=== PATIENT | female | born 1975 | race Caucasian/White ===

== ENCOUNTER 2020-08-20 14:47 | Outpatient (REF) | payer OTHER, SELFPAY ==
[2020-08-23 04:27] LABS: HPV mRNA E6/E7 rflx Not Detected (Not Detected)
== END 2020-08-20 14:48 | disposition home or self-care (01) ==
LOC: HO.LAB 14:47
PROVIDERS: Visit Provider Obstetrics & Gynecology
DX: Z01.419 Encounter for gynecological examination (general) (routine) without abnormal findings (principal); Z11.51 Encounter for screening for human papillomavirus (HPV)
CPT/HCPCS: 87624; 88142

== ENCOUNTER 2020-10-19 19:59 | Emergency (ER) | payer OTHER, SELFPAY ==
--- NOTE | ~2020-10-19 | CT_ITS ---
EXAMINATION: CT HEAD WITHOUT CONTRAST CLINICAL INFORMATION: Altered mental status. COMPARISON: None. TECHNIQUE: Multidetector CT examination of the head is performed without contrast. This CT examination was performed using dose optimization techniques as appropriate, variously including the following: *Automated exposure control *Adjustment of mA and/or kV according to patient size (this includes techniques or standardized protocols for targeted exams where dose is matched to indication/reason for exam; i.e. extremities or head) *Use of iterative reconstruction technique DLP: 685 mGy-cm FINDINGS: There is no evidence of a recent intracranial hemorrhage or extra-axial collection. The midline structures are nondisplaced. The ventricles, cisterns, and sulci are within normal limits. There is no evidence of an intra-axial mass. There are no suspicious focal areas of abnormal brain attenuation. The galeas-white interface is within normal limits. There is no evidence of acute territorial infarct. Thickening in the region of the turbinates on the left. CT/CT head/brain wo con IMPRESSION: 1. There is no evidence of a recent intracranial hemorrhage. 2. No acute infarct. 3. No etiology for altered mental status demonstrated.
[2020-10-19 20:01] VITALS: BP 184/96; PULSE 120; RESP 38; O2SAT 99; BMI 24.0
[2020-10-19 20:06] VITALS: TEMP 37.1
[2020-10-19 20:11] LABS: Glucose, Whole Blood 135 mg/dL (60-115)
--- NOTE | 2020-10-19 20:18 | PC.NURSE ---
SZ pads applied to bed. Pt continuously thrashing in beds, at times legs over side rails. This RN discussing with manager roofing concern over fall risk. Sitter at bedside. Awaiting primary MD stephenson.
--- NOTE | 2020-10-19 20:22 | PC.NURSE ---
Unable to obtain EKG/labs at this time due to mental status.
--- NOTE | 2020-10-19 20:58 | ED.ALCOHOL ---
HPI - Alcohol General Chief Complaint: ETOH/Substance Use Stated Complaint: ams Time Seen by Provider: 10/19/20 20:58 Source: patient and EMS Mode of arrival: EMS Limitations: altered mental status History of Present Illness HPI narrative: 45 yo female with hx of HTN, HLD, found unresponsive in car with drugs and drug paraphernalia given bystander narcan - agitated with EMS given haldol and ativan, still agitated and uncooperative in the ED on arrival thrashing around, glucose 67 as well - given glucagon by EMS. EMS suspected polysubstance issue given scene of car MD complaint: alcohol intoxication Last drink: Unknown Chronic alcohol use: No Previous visits for alcohol intoxication: No Recent trauma: No Associated symptoms: denies other symptoms Treatments prior to arrival: other (narcan, glucagon, haldol/ativan) Related Data Home Medications Medication Instructions Recorded Confirmed amlodipine 5 mg tablet 5 mg PO DAILY 08/20/20 08/20/20 atorvastatin 80 mg tablet 80 mg PO DAILY 08/20/20 08/20/20 carvedilol 6.25 mg tablet 6.25 mg PO BID 08/20/20 08/20/20 lisinopril 5 mg tablet 5 mg PO DAILY 08/20/20 08/20/20 norethindrone (contraceptive) 0.35 0.35 mg PO DAILY 08/20/20 08/20/20 mg tablet ticagrelor 90 mg tablet 90 mg PO BID 08/20/20 08/20/20 Allergies Allergy/AdvReac Type Severity Reaction Status Date / Time No Known Allergies Allergy Verified 08/20/20 14:51 Review of Systems Review of Systems: ROS unable to be obtained due to altered mental status [facility] Past Medical History Attestation statement: The following information was validated with the patient. Medical History Heart attack HTN (hypertension) Lupus Surgical History Hx of hand surgery Family History Family History (Updated 08/20/20 @ 15:04 by MEAGAN Linares) Father Leukemia Maternal Aunt Lymphoma Social History Social History Alcohol intake: never Patient Tobacco Use Status: Current everyday Tobacco user Cigarettes Per Day: 5 Advance Directives: No Advance Directives Information Provided: No Patient : No (Unknown) Gender identity: female Physical Exam Vital Signs: Vital Signs: Last Vital Signs Temp 96.8 F 10/19/20 22:19 Pulse 81 10/20/20 01:12 Resp 16 10/20/20 01:12 BP 135/90 H 10/20/20 01:12 Pulse Ox 98 10/20/20 01:12 Body Mass Index 24.0 Appearance: Thrashing around, unable to fully wake up. Unkempt, Moderate acute distress. Eyes: Pupils equal, round and reactive to light. ENT: Pharynx normal. Neck: Normal inspection. Neck supple. CVS: Normal heart rate and rhythm. Pulses normal. Respiratory: No respiratory distress. Breath sounds normal. Abdomen: Soft and no signs of trauma Skin: Skin warm and dry. Normal skin color. track vasquez noted on L forearm no signs of cellulitis Extremities: No lower extremity edema. Neuro: Moves all extremities, pulls away from stimuli and voice. No motor deficit. No sensory deficit. Course Course Course Narrative: no acute findings on CT scan, VS stable end tidal 44, will repeat blood sugar blood sugar stable, patient much more alert and talking, calm states she doesn't remember the events patient wakes up more easily with verbal stimuli patient signed out pending metabolization of medications she received en route MDM - Alcohol MDM Narrative Medical decision making narrative: 45 yo female with hx of HTN, HLD, CAD here with AMS and found in a car with drugs - chemically restrained by EMS, still agitated here, IM ativan ordered so we can obtain EKG, labs and CT head - at this time undifferentiated metabolic/toxic encephalopathy Lab Data Result diagrams: 10/19/20 22:12 10/19/20 22:12 Labs: Lab Results 10/19/20 10/19/20 10/19/20 Range/Units 20:07 22:11 22:11 WBC (4.8-10.8) X10*3/uL RBC (4.20-5.50) X10*6/uL Hgb (12.0-16.0) g/dl Hct (37-47) % MCV (80-98) fL MCH (27.0-33.0) pg MCHC (31.0-35.0) g/dl RDW (11.0-16.0) % Plt Count (160-400) X10*3/uL MPV (9.4-12.3) fL Immature Gran % (Auto) (0.0-0.4) % Neut % (Auto) (45-73) % Lymph % (Auto) (20-40) % Stearns % (Auto) (2-11) % Eos % (Auto) (0-4) % Baso % (Auto) (0-2) % Lymph # (Auto) (1.2-4.9) X10*3/uL [place] # (Auto) (0.1-1.2) X10*3/uL Eos # (Auto) (0.0-0.4) X10*3/uL Baso # (Auto) (0.0-0.2) X10*3/uL Abs Immat Gran (auto) (0.00-0.03) X10*3/uL Absolute Neuts (auto) (2.0-8.3) X10*3/uL Absolute Nucleated RBC (0.0-0.012) X10*3/uL Nucleated RBC % (auto) (0.0-0.2) /100WBC PT (9.9-13.0) SEC INR (0.9-1.1) APTT (24.1-38.0) SEC Sodium (135-145) mmol/L Potassium (3.3-5.1) mmol/L Chloride (96-108) mmol/L Carbon Dioxide (22-29) mmol/L Anion Gap (12-20) BUN (9-16) mg/dL Creatinine (0.5-1.4) mg/dL Estim Creat Clear Calc Estimated GFR POC Glucose 135 H (60-115) mg/dL Random Glucose (60-115) mg/dL Calcium (8.4-10.2) mg/dL Magnesium (1.6-2.6) mg/dL Total Bilirubin (0.0-1.0) mg/dL Direct Bilirubin (0.0-0.5) mg/dL AST (5-31) U/L ALT (0-31) U/L Alkaline Phosphatase (39-117) U/L Ammonia 41 (13-55) umol/L Total Protein (6.5-8.0) g/dL Albumin (3.5-5.0) g/dL Salicylates (15-30) mg/dL Acetaminophen (<30) mcg/mL Ethyl Alcohol < 10 mg/dL Coronavirus (PCR) (Negative) Influenza Type A (PCR) (Negative) Influenza Type B (PCR) (Negative) RSV RNA Qual (PCR) (Negative) 10/19/20 10/19/20 10/19/20 Range/Units 22:12 22:12 22:12 WBC 14.6 H (4.8-10.8) X10*3/uL RBC 4.31 (4.20-5.50) X10*6/uL Hgb 11.5 L (12.0-16.0) g/dl Hct 35.8 L (37-47) % MCV 83.1 (80-98) fL MCH 26.7 L (27.0-33.0) pg MCHC 32.1 (31.0-35.0) g/dl RDW 14.6 (11.0-16.0) % Plt Count 239 (160-400) X10*3/uL MPV 11.2 (9.4-12.3) fL Immature Gran % (Auto) 0.5 H (0.0-0.4) % Neut % (Auto) 89.0 H (45-73) % Lymph % (Auto) 6.6 L (20-40) % [place] % (Auto) 3.2 (2-11) % Eos % (Auto) 0.4 (0-4) % Baso % (Auto) 0.3 (0-2) % Lymph # (Auto) 1.0 L (1.2-4.9) X10*3/uL [place] # (Auto) 0.5 (0.1-1.2) X10*3/uL Eos # (Auto) 0.1 (0.0-0.4) X10*3/uL Baso # (Auto) 0.1 (0.0-0.2) X10*3/uL Abs Immat Gran (auto) 0.08 H (0.00-0.03) X10*3/uL Absolute Neuts (auto) 13.0 H (2.0-8.3) X10*3/uL Absolute Nucleated RBC 0.000 (0.0-0.012) X10*3/uL Nucleated RBC % (auto) 0.0 (0.0-0.2) /100WBC PT 12.1 (9.9-13.0) SEC INR 1.1 (0.9-1.1) APTT 33.0 (24.1-38.0) SEC Sodium 143 (135-145) mmol/L Potassium 3.0 L (3.3-5.1) mmol/L Chloride 105 (96-108) mmol/L Carbon Dioxide 28 (22-29) mmol/L Anion Gap 13 (12-20) BUN 11 (9-16) mg/dL Creatinine 0.71 (0.5-1.4) mg/dL Estim Creat Clear Calc 94.6 Estimated GFR > 60 POC Glucose (60-115) mg/dL Random Glucose 83 (60-115) mg/dL Calcium 9.1 (8.4-10.2) mg/dL Magnesium 2.1 (1.6-2.6) mg/dL Total Bilirubin 0.3 (0.0-1.0) mg/dL Direct Bilirubin < 0.2 (0.0-0.5) mg/dL AST 17 (5-31) U/L ALT 13 (0-31) U/L Alkaline Phosphatase 78 (39-117) U/L Ammonia (13-55) umol/L Total Protein 7.0 (6.5-8.0) g/dL Albumin 4.5 (3.5-5.0) g/dL Salicylates (15-30) mg/dL Acetaminophen (<30) mcg/mL Ethyl Alcohol mg/dL Coronavirus (PCR) (Negative) Influenza Type A (PCR) (Negative) Influenza Type B (PCR) (Negative) RSV RNA Qual (PCR) (Negative) 10/19/20 10/19/20 10/20/20 Range/Units 22:12 22:17 00:48 WBC (4.8-10.8) X10*3/uL RBC (4.20-5.50) X10*6/uL Hgb (12.0-16.0) g/dl Hct (37-47) % MCV (80-98) fL MCH (27.0-33.0) pg MCHC (31.0-35.0) g/dl RDW (11.0-16.0) % Plt Count (160-400) X10*3/uL MPV (9.4-12.3) fL Immature Gran % (Auto) (0.0-0.4) % Neut % (Auto) (45-73) % Lymph % (Auto) (20-40) % Ste[place]s % (Auto) (2-11) % Eos % (Auto) (0-4) % Baso % (Auto) (0-2) % Lymph # (Auto) (1.2-4.9) X10*3/uL [place] # (Auto) (0.1-1.2) X10*3/uL Eos # (Auto) (0.0-0.4) X10*3/uL Baso # (Auto) (0.0-0.2) X10*3/uL Abs Immat Gran (auto) (0.00-0.03) X10*3/uL Absolute Neuts (auto) (2.0-8.3) X10*3/uL Absolute Nucleated RBC (0.0-0.012) X10*3/uL Nucleated RBC % (auto) (0.0-0.2) /100WBC PT (9.9-13.0) SEC INR (0.9-1.1) APTT (24.1-38.0) SEC Sodium (135-145) mmol/L Potassium (3.3-5.1) mmol/L Chloride (96-108) mmol/L Carbon Dioxide (22-29) mmol/L Anion Gap (12-20) BUN (9-16) mg/dL Creatinine (0.5-1.4) mg/dL Estim Creat Clear Calc Estimated GFR POC Glucose 94 (60-115) mg/dL Random Glucose (60-115) mg/dL Calcium (8.4-10.2) mg/dL Magnesium (1.6-2.6) mg/dL Total Bilirubin (0.0-1.0) mg/dL Direct Bilirubin (0.0-0.5) mg/dL AST (5-31) U/L ALT (0-31) U/L Alkaline Phosphatase (39-117) U/L Ammonia (13-55) umol/L Total Protein (6.5-8.0) g/dL Albumin (3.5-5.0) g/dL Salicylates < 5.0 L (15-30) mg/dL Acetaminophen < 1 (<30) mcg/mL Ethyl Alcohol mg/dL Coronavirus (PCR) NEGATIVE (Negative) Influenza Type A (PCR) NEGATIVE (Negative) Influenza Type B (PCR) NEGATIVE (Negative) RSV RNA Qual (PCR) NEGATIVE (Negative) ECG Data ECG #1: Attestation: I personally reviewed and interpreted this ECG as follows: ECG interpretation date: 10/19/20 ECG interpretation time: 21:19 Interpretation: Rate: 82 Rhythm: NSR Superior: normal Normal P waves. Normal NABEEL. Normal QRS complex. ST T wave : nonspecific, no NAYA qTC: normal prior studies: none available The study has been interpreted contemporaneously by me. . Discharge Plan Discharge Clinical Impression: Acute alteration in mental status, Substance abuse Instructions: Polysubstance Abuse (ED), Altered Mental Status (ED) Additional Instructions: return to ED for any worsening symptoms or concerns Prescriptions: No Action lisinopril 5 mg tablet 5 mg PO DAILY RF: 0 amlodipine 5 mg tablet 5 mg PO DAILY RF: 0 norethindrone (contraceptive) 0.35 mg tablet 0.35 mg PO DAILY RF: 0 atorvastatin 80 mg tablet 80 mg PO DAILY RF: 0 carvedilol 6.25 mg tablet 6.25 mg PO BID RF: 0 Brilinta 90 mg tablet 90 mg PO BID RF: 0
--- NOTE | 2020-10-19 21:04 | PC.NURSE ---
at bedside for primary eval.
--- NOTE | 2020-10-19 21:07 | ECG_ITS ---
Test Reason : OVERDOSE Blood Pressure : / mmHG Vent. Rate : 082 BPM Atrial Rate : 082 BPM P-R Int : 146 ms QRS Dur : 106 ms QT Int : 416 ms P-R-T Axes : 054 032 005 degrees QTc Int : 486 ms Normal sinus rhythm Possible Left atrial enlargement Possible Inferior infarct , age undetermined Abnormal ECG No previous ECGs available Referred By: Adrienne Hummel Electronically Signed By:SHERRILL REGALADO MD
[2020-10-19] MEDS: LORazepam 2 MG/ML VIAL IM (21:27)
[2020-10-19 22:19] VITALS: BP 117/76; PULSE 78; RESP 16; TEMP 36; O2SAT 92
[2020-10-19 22:46] LABS: MANUAL DIFF FLAG NO
[2020-10-19 22:47] LABS: Basophils Absolute Auto 0.1 X10*3/uL (0.0-0.2); Basophils Percent Auto 0.3 % (0-2); Eosinophils Absolute Auto 0.1 X10*3/uL (0.0-0.4); Eosinophils Percent Auto 0.4 % (0-4); Hematocrit 35.8 % (37-47); Hemoglobin 11.5 g/dl (12.0-16.0); Imm Gran Abs Auto 0.08 X10*3/uL (0.00-0.03); Imm Gran Pct Auto 0.5 % (0.0-0.4); Lymphocytes Percent Auto 6.6 % (20-40); Mean Corpuscular HGB Conc 32.1 g/dl (31.0-35.0); Mean Corpuscular Hemoglobin 26.7 pg (27.0-33.0); Mean Corpuscular Volume 83.1 fL (80-98); Mean Platelet Volume 11.2 fL (9.4-12.3); Monocytes Absolute Auto 0.5 X10*3/uL (0.1-1.2); Monocytes Percent Auto 3.2 % (2-11); Platelet Count 239 X10*3/uL (160-400); Red Blood Count 4.31 X10*6/uL (4.20-5.50); Red Cell Distribution Width 14.6 % (11.0-16.0); White Blood Count 14.6 X10*3/uL (4.8-10.8)
[2020-10-19 23:00] VITALS: BP 121/70; PULSE 81; RESP 19; O2SAT 92
[2020-10-19 23:06] LABS: INTERNATIONAL NORM RATIO 1.1 (0.9-1.1); Prothrombin Time 12.1 SEC (9.9-13.0)
[2020-10-19 23:13] LABS: Ammonia 41 umol/L (13-55)
[2020-10-19 23:15] LABS: Ethanol < 10 mg/dL
[2020-10-19 23:19] LABS: Alanine Aminotransferase 13 U/L (0-31); Albumin Level 4.5 g/dL (3.5-5.0); Alkaline Phosphatase 78 U/L (39-117); Anion Gap 13 (12-20); Aspartate Amino Transferase 17 U/L (5-31); Bilirubin Direct < 0.2 mg/dL (0.0-0.5); Bilirubin Total 0.3 mg/dL (0.0-1.0); Blood Urea Nitrogen 11 mg/dL (9-16); Calcium 9.1 mg/dL (8.4-10.2); Carbon Dioxide 28 mmol/L (22-29); Chloride 105 mmol/L (96-108); Creatinine Clr Calc Pharmacy 94.6; Estimated Glomerular Filt Rate > 60; Glucose Random 83 mg/dL (60-115); Magnesium 2.1 mg/dL (1.6-2.6); Sodium 143 mmol/L (135-145)
[2020-10-19 23:21] LABS: Salicylate < 5.0 mg/dL (15-30)
[2020-10-19 23:23] LABS: Acetaminophen LAB < 1 mcg/mL (<30)
[2020-10-19 23:25] LABS: Influenza A PCR NEGATIVE (Negative); Influenza B PCR NEGATIVE (Negative); Resp Syncy Virus RNA Qual PCR NEGATIVE (Negative); SARS COV2 PCR INHOUSE NEGATIVE (Negative)
[2020-10-20 00:52] LABS: Glucose, Whole Blood 94 mg/dL (60-115)
[2020-10-20 01:12] VITALS: BP 135/90; PULSE 81; RESP 16; O2SAT 98
--- NOTE | 2020-10-20 01:13 | PC.NURSE ---
Pt remains asleep in bed in NAD at this time. VSS.
[2020-10-20 05:59] VITALS: BP 169/98; PULSE 92; RESP 18; O2SAT 98
--- NOTE | 2020-10-20 05:59 | PC.NURSE ---
Pt resting comfortably in bed with daughter at bedside. Pt sleeping throughout the night without difficulty. VSS remain WNL. Continue to monitor.
--- NOTE | 2020-10-20 06:25 | PC.NURSE ---
Bladder scan: 740 ml. This RN at bedside for straight cath. Pt tolerating procedure well. UA obtained and sent.
[2020-10-20 06:50] LABS: Glucose Urine UA NEG (NEG); Leukocyte Esterase Urine NEG (NEG); Nitrite Urine NEG (NEG); PH 6.5 (5.0-8.0); Specific Gravity - Urine 1.025 (1.005-1.025); Urine Blood NEG (NEG); Urine Ketones 5 MG/DL (NEG); Urine Protein NEG (NEG-TRACE)
[2020-10-20 06:52] LABS: Appearance Urine CLEAR; Color Urine YELLOW
[2020-10-20 07:05] LABS: Amphetamine Screen Urine Not Detected (Not Detect); Barbiturates, Urine Not Detected (Not Detect); Benzodiazepines Screen Urine POSITIVE (Not Detect); Cannabinoid Screen Urine Not Detected (Not Detect); Cocaine Screen Urine POSITIVE (Not Detect); Opiate Screen Urine POSITIVE (Not Detect); Phencyclidine Screen Urine Not Detected (Not Detect)
[2020-10-20 08:52] LABS: UPreg QC Valid YES; Urine Pregnancy NEGATIVE (NEGATIVE)
[2020-10-20] MEDS: Potassium Chloride Packet 20 MEQ PACKET 40 MEQ PO (09:18)
[2020-10-20 09:20] VITALS: BP 162/97; PULSE 106; RESP 15; TEMP 36.6; O2SAT 98
--- NOTE | 2020-10-20 09:30 | PC.NURSE ---
Pt alert and oriented x3. BP high 160s, she denies pain, sob, nausea, or dizziness. Pt sleeping on and off, responds appropriately to questions. Pt requests her methadone which she states her current dose is 95mg. Medication given as documented. Her daughter is at bedside. This chief underwriter will follow-up on pt's request for her methadone.
--- NOTE | 2020-10-20 10:15 | PC.NURSE ---
This television script writer spoke with [place] nurse at [facility] regarding pt's current methadone dose verification. Release of information form signed by pt and faxed by this television script writer (fax # [phone]). Currently awaiting dose confirmation.
--- NOTE | 2020-10-20 13:03 | MHC.RECOVSUP ---
Recovery Support note: Patient is a 45 year old Lao speaking female who presented to [facility] ED via EMS on 10/19 due to altered mental status after using substances. Patient was chemically restrained by EMS due to agitation. Patient remained in the ED overnight and this junior underwriter met with patient to discuss her substance use and treatment options. Patient is currently resting in the hospital bed with her daughter by her side. Patient reports she was sober for 16 years and relapsed in November. Patient reports things have slowly gotten worse since then and that she bas been using increasingly over the past week. Patient is on methadone and reports daily heroin use. Patient reports a desire to go to detox to get stabilized on methadone and to get back into recovery. Patient reports she has her medications with her and would be able to bring them to treatment. Patient was catheterized while altered and chemically restrained however she is awake, alert and able to ambulate and urinate without assistance. This junior underwriter will refer patient to ATS facilities for treatment.
--- NOTE | 2020-10-20 17:46 | MHC.RECOVSUP ---
Recovery Support note: Patient information has been reviewed by [facility] and patient has been deemed appropriate for admission. Staff unable to complete intake at this time. Discussed case with patient and daughter. Plan for patient to go home with daughter and for them to contact [facility] later tonight to complete intake and schedule an admission. Patient and daughter are agreeable to this plan. Patient provided with a last dose letter to bring to [facility] if she does not get into treatment. Last dose letter has been faxed to [facility] in the event that she is accepted. Discussed case with patient's ED provider and RN.
--- NOTE | 2020-10-20 18:09 | PHA.MEDREC ---
Pharmacy Consult ? Medication Reconciliation Pharmacy has completed the medication reconciliation.
== END 2020-10-20 18:20 | disposition home or self-care (01) ==
PROVIDERS: Physician Assistant Medical; Emergency Provider Emergency Medicine
DX: R41.82 Altered mental status, unspecified (principal); F19.10 Other psychoactive substance abuse, uncomplicated; Z20.822 Contact with and (suspected) exposure to COVID-19; I10 Essential (primary) hypertension; F17.210 Nicotine dependence, cigarettes, uncomplicated
CPT/HCPCS: 0241U; 36415; 70450; 80048; 80076; 80143; 80179; 80307; 81003; 81025; 82077; 82140; 82947; 83735; 85025; 85610; 85730; 93005; 96372; 99285; J2060

== ENCOUNTER 2021-04-22 12:10 | Emergency (ER) | payer OTHER, SELFPAY ==
--- NOTE | ~2021-04-22 | US_ITS ---
EXAMINATION: US ABDOMEN LIMITED CLINICAL INFORMATION: Right upper quadrant pain and distention with tenderness. COMPARISON: None TECHNIQUE: Real-time imaging of the right upper quadrant abdominal viscera. FINDINGS: PANCREAS: The visualized portions of the pancreas are unremarkable but a large portion of the gland is obscured by bowel gas. LIVER: The liver is enlarged measuring at least 18 cm in greatest length and demonstrates increased echogenicity consistent with hepatic steatosis. No focal hepatic lesion. There is no intrahepatic biliary duct dilatation seen. GALLBLADDER: Multiple gallstones are present the largest measuring 2.1 x 1.1 x 1.5 cm. The gallbladder is physiologically distended with a slightly thickened wall at 7 mm. Sludge is also present in the gallbladder. The patient was not tender over the gallbladder when compressed with the ultrasound probe COMMON BILE DUCT: Normal in caliber measuring 0.6 cm in diameter. RIGHT KIDNEY: Normal. No hydronephrosis. No renal calculi or focal parenchymal lesions. The kidney measures 12.0 cm in maximum dimension. FREE FLUID: None. US/US abdomen limited IMPRESSION: 1. Enlarged fatty liver 2. Cholelithiasis with biliary sludge and slight thickening of gallbladder wall but negative Up's sign.
[2021-04-22 12:22] VITALS: BP 153/66; PULSE 66; RESP 18; TEMP 36.6; O2SAT 99; BMI 23.6
[2021-04-22 12:48] LABS: MANUAL DIFF FLAG NO
[2021-04-22 12:52] LABS: Appearance Urine HAZY; Basophils Absolute Auto 0.1 X10*3/uL (0.0-0.2); Basophils Percent Auto 0.6 % (0-2); Color Urine YELLOW; Eosinophils Absolute Auto 0.2 X10*3/uL (0.0-0.4); Eosinophils Percent Auto 1.8 % (0-4); Glucose Urine UA NEG (NEG); Hematocrit 35.3 % (37.0-47.0); Hemoglobin 11.5 g/dl (12.0-16.0); Imm Gran Abs Auto 0.03 X10*3/uL (0.00-0.03); Imm Gran Pct Auto 0.3 % (0.0-0.4); Leukocyte Esterase Urine NEG (NEG); Lymphocytes Absolute Auto 2.2 X10*3/uL (1.2-4.9); Lymphocytes Percent Auto 24.3 % (20-40); Mean Corpuscular HGB Conc 32.6 g/dl (31.0-35.0); Mean Corpuscular Hemoglobin 27.7 pg (27.0-33.0); Mean Corpuscular Volume 85.1 fL (80.0-98.0); Mean Platelet Volume 11.6 fL (9.4-12.3); Monocytes Absolute Auto 0.6 X10*3/uL (0.1-1.2); Monocytes Percent Auto 6.3 % (2-11); Neutrophils Percent Auto 66.7 % (45-73); Nitrite Urine NEG (NEG); Platelet Count 185 X10*3/uL (160-400); Red Blood Count 4.15 X10*6/uL (4.20-5.50); Red Cell Distribution Width 15.4 % (11.0-16.0); Specific Gravity - Urine >= 1.030 (1.005-1.025); Urine Blood NEG (NEG); Urine Ketones NEG (NEG); Urine Protein NEG (NEG-TRACE); White Blood Count 8.9 X10*3/uL (4.8-10.8)
[2021-04-22 12:54] LABS: UPreg QC Valid YES; Urine Pregnancy NEGATIVE (NEGATIVE)
[2021-04-22 13:13] LABS: COVID-19 Test Negative (Negative); IDNOW Serial# 9DD0AD1C
[2021-04-22 13:21] LABS: Alanine Aminotransferase 12 U/L (0-31); Albumin Level 4.3 g/dL (3.5-5.0); Alkaline Phosphatase 68 U/L (39-117); Anion Gap 10 (12-20); Aspartate Amino Transferase 14 U/L (5-31); Bilirubin Direct < 0.2 mg/dL (0.0-0.5); Bilirubin Total 0.4 mg/dL (0.0-1.0); Carbon Dioxide 30 mmol/L (22-29); Chloride 107 mmol/L (96-108); Estimated Glomerular Filt Rate > 60; Glucose Random 114 mg/dL (60-115); Lipase 20 U/L (8-78); Potassium 4.1 mmol/L (3.3-5.1); Sodium 143 mmol/L (135-145); Total Protein 6.9 g/dL (6.5-8.0)
[2021-04-22 15:48] LABS: Blood Urea Nitrogen 11 mg/dL (9-16); Calcium 9.8 mg/dL (8.4-10.2)
--- NOTE | 2021-04-22 16:44 | ED.ABDPAIN ---
HPI - Abdominal Pain General Chief Complaint: Abdominal Pain Stated Complaint: lower right abd pain Time Seen by Provider: 04/22/21 16:42 Source: patient Mode of arrival: ambulatory Limitations: no limitations History of Present Illness HPI narrative: 45-year-old female presenting to the ER with constant right sided abdominal pain that started 2 days ago and has been getting worse. She reports it started Tuesday night, cannot recall if it started after eating or if eating makes it worse or not. She reports the pain is mostly in her right upper and right middle abdomen. It does not radiate and it is sharp in nature, 6-7 out of 10. She is nauseated but has not vomited. Last BM was yesterday and was normal. She feels like she is bloated and distended. Denies ETOH use. Denies urinary symptoms. MD elicited complaint: abdominal pain Pertinent past history: none Onset (ago): day(s) (2) Pain Consistency: constant Location: RUQ Severity: moderate Pain scale (0-10): 6 Quality: stabbing and aching Radiation: none Migration to: no migration Exacerbating factors: nothing Relieving factors: nothing Associated symptoms: nausea Related Data Home Medications Medication Instructions Recorded Confirmed amlodipine 5 mg tablet 5 mg PO DAILY 08/20/20 10/20/20 atorvastatin 80 mg tablet 80 mg PO DAILY 08/20/20 10/20/20 carvedilol 6.25 mg tablet 6.25 mg PO BID 08/20/20 10/20/20 lisinopril 5 mg tablet 5 mg PO DAILY 08/20/20 10/20/20 norethindrone (contraceptive) 0.35 0.35 mg PO DAILY 08/20/20 10/20/20 mg tablet aspirin 81 mg tablet,delayed 81 mg PO DAILY 10/20/20 10/20/20 release Allergies Allergy/AdvReac Type Severity Reaction Status Date / Time No Known Allergies Allergy Verified 08/20/20 14:51 Review of Systems Review of Systems Constitutional: No Fever, No Chills ENT/Mouth: No sore throat, No Rhinorrhea, No Swallowing Difficulty Cardiovascular: No Chest Pain, No SOB Respiratory: No Cough, No Sputum, No Wheezing, No dyspnea Gastrointestinal: + Nausea, No Vomiting, No Diarrhea, + abdominal Pain, No Hematochezia, No Melena Genitourinary: No Dysuria, No Urinary Frequency, No Hematuria Musculoskeletal: No joint pain, No Myalgias Skin: No Skin Lesions, No rash Neuro: No Weakness,, No Dizziness, No Headache Psych: + Anxiety/Panic, No Depression Heme/Lymph: No Bruising, No Lymphadenopathy Physical Exam Vital Signs: Vital Signs: Last Vital Signs Temp 98.9 F 04/22/21 17:01 Pulse 77 04/22/21 17:01 Resp 16 04/22/21 17:01 BP 150/78 H 04/22/21 17:01 Pulse Ox 98 04/22/21 17:01 BMI result Body Mass Index 23.6 Appearance: Alert. Oriented X3. No acute distress. Eyes: Pupils equal, round and reactive to light. ENT: Pharynx normal. Neck: Normal inspection. Neck supple. CVS: Normal heart rate and rhythm. Pulses normal. Respiratory: No respiratory distress. Breath sounds normal. Abdomen: Softly distended with right upper and right middle abdominal tenderness, RUQ fullness with guarding. no rebound. normal +BS x4 Skin: Skin warm and dry. Normal skin color. Normal skin turgor. No rashes. Extremities: No lower extremity edema. Neuro: Oriented X 3. No motor deficit. No sensory deficit. Course Course Course Narrative: 45 y/o female presenting with constant right sided abdominal pain for the last 2 days. Worsened significantly the last 4 hours in the waiting room. Patient is slightly hypertensive on arrival with BP 153/66, normal HR and afebrile. Her exam is significant for RUQ tenderness and softly distended abd. Her labs are unremarkable without leukocytosis or LFT derrangement. Lipase normal. Will get Abd U/S for further evaluation. Nurse attempted PIV placement but line blew and patient refusing to try to replace. Will give PO meds and prilosec. Will sign out to night provider. MDM - Abdominal Pain Lab Data Result diagrams: 04/22/21 12:37 04/22/21 12:37 Labs: Lab Results 04/22/21 04/22/21 04/22/21 Range/Units 12:37 12:37 12:37 WBC 8.9 (4.8-10.8) X10*3/uL RBC 4.15 L (4.20-5.50) X10*6/uL Hgb 11.5 L (12.0-16.0) g/dl Hct 35.3 L (37.0-47.0) % MCV 85.1 (80.0-98.0) fL MCH 27.7 (27.0-33.0) pg MCHC 32.6 (31.0-35.0) g/dl RDW 15.4 (11.0-16.0) % Plt Count 185 (160-400) X10*3/uL MPV 11.6 (9.4-12.3) fL Immature Gran % (Auto) 0.3 (0.0-0.4) % Neut % (Auto) 66.7 (45-73) % Lymph % (Auto) 24.3 (20-40) % [place] % (Auto) 6.3 (2-11) % Eos % (Auto) 1.8 (0-4) % Baso % (Auto) 0.6 (0-2) % Lymph # (Auto) 2.2 (1.2-4.9) X10*3/uL [place] # (Auto) 0.6 (0.1-1.2) X10*3/uL Eos # (Auto) 0.2 (0.0-0.4) X10*3/uL Baso # (Auto) 0.1 (0.0-0.2) X10*3/uL Abs Immat Gran (auto) 0.03 (0.00-0.03) X10*3/uL Absolute Neuts (auto) 6.0 (2.0-8.3) x10*3/uL Absolute Nucleated RBC 0.000 (0.0-0.012) X10*3/uL Nucleated RBC % (auto) 0.0 (0.0-0.2) /100WBC Sodium 143 (135-145) mmol/L Potassium 4.1 D (3.3-5.1) mmol/L Chloride 107 (96-108) mmol/L Carbon Dioxide 30 H (22-29) mmol/L Anion Gap 10 L (12-20) BUN 11 (9-16) mg/dL Creatinine 0.95 (0.5-1.4) mg/dL Estim Creat Clear Calc 68.0 Estimated GFR > 60 Random Glucose 114 (60-115) mg/dL Calcium 9.8 D (8.4-10.2) mg/dL Total Bilirubin 0.4 (0.0-1.0) mg/dL Direct Bilirubin < 0.2 (0.0-0.5) mg/dL AST 14 (5-31) U/L ALT 12 (0-31) U/L Alkaline Phosphatase 68 (39-117) U/L Total Protein 6.9 (6.5-8.0) g/dL Albumin 4.3 (3.5-5.0) g/dL Lipase 20 (8-78) U/L Urine Color Urine Appearance Urine pH (5.0-8.0) Ur Specific [place] (1.005-1.025) Urine Protein (NEG-TRACE) MG/DL Urine Glucose (UA) (NEG) MG/DL Urine Ketones (NEG) MG/DL Urine Blood (NEG) Urine Nitrite (NEG) Ur Leukocyte Esterase (NEG) Urine Test (NEGATIVE) COVID-19 (GELACIO) Negative (Negative) COVID-19 Clin Com See Note 04/22/21 04/22/21 Range/Units 12:37 12:37 WBC (4.8-10.8) X10*3/uL RBC (4.20-5.50) X10*6/uL Hgb (12.0-16.0) g/dl Hct (37.0-47.0) % MCV (80.0-98.0) fL MCH (27.0-33.0) pg MCHC (31.0-35.0) g/dl RDW (11.0-16.0) % Plt Count (160-400) X10*3/uL MPV (9.4-12.3) fL Immature Gran % (Auto) (0.0-0.4) % Neut % (Auto) (45-73) % Lymph % (Auto) (20-40) % [place] % (Auto) (2-11) % Eos % (Auto) (0-4) % Baso % (Auto) (0-2) % Lymph # (Auto) (1.2-4.9) X10*3/uL [place] # (Auto) (0.1-1.2) X10*3/uL Eos # (Auto) (0.0-0.4) X10*3/uL Baso # (Auto) (0.0-0.2) X10*3/uL Abs Immat Gran (auto) (0.00-0.03) X10*3/uL Absolute Neuts (auto) (2.0-8.3) x10*3/uL Absolute Nucleated RBC (0.0-0.012) X10*3/uL Nucleated RBC % (auto) (0.0-0.2) /100WBC Sodium (135-145) mmol/L Potassium (3.3-5.1) mmol/L Chloride (96-108) mmol/L Carbon Dioxide (22-29) mmol/L Anion Gap (12-20) BUN (9-16) mg/dL Creatinine (0.5-1.4) mg/dL Estim Creat Clear Calc Estimated GFR Random Glucose (60-115) mg/dL Calcium (8.4-10.2) mg/dL Total Bilirubin (0.0-1.0) mg/dL Direct Bilirubin (0.0-0.5) mg/dL AST (5-31) U/L ALT (0-31) U/L Alkaline Phosphatase (39-117) U/L Total Protein (6.5-8.0) g/dL Albumin (3.5-5.0) g/dL Lipase (8-78) U/L Urine Color YELLOW Urine Appearance HAZY Urine pH 6.0 (5.0-8.0) Ur Specific [place] >= 1.030 H (1.005-1.025) Urine Protein NEG (NEG-TRACE) MG/DL Urine Glucose (UA) NEG (NEG) MG/DL Urine Ketones NEG (NEG) MG/DL Urine Blood NEG (NEG) Urine Nitrite NEG (NEG) Ur Leukocyte Esterase NEG (NEG) Urine Test NEGATIVE (NEGATIVE) COVID-19 (GELACIO) (Negative) COVID-19 Clin Com Critical Care Time Critical Care Time Critical Care Time: No Discharge Plan Discharge Clinical Impression: Abdominal pain, RUQ Prescriptions: No Action aspirin 81 mg Tablet,Delayed Release (Dr/Ec) 81 mg PO DAILY 0RF lisinopril 5 mg tablet 5 mg PO DAILY 0RF amlodipine 5 mg tablet 5 mg PO DAILY 0RF norethindrone (contraceptive) 0.35 mg tablet 0.35 mg PO DAILY 0RF atorvastatin 80 mg tablet 80 mg PO DAILY 0RF carvedilol 6.25 mg tablet 6.25 mg PO BID 0RF PMFSH Past Medical History Medical History Heart attack HTN (hypertension) Lupus Surgical History Hx of hand surgery Family History Family History (Updated 08/20/20 @ 15:04 by MEAGAN Linares) Father Leukemia Maternal Aunt Lymphoma Social History Social History Alcohol intake: never Patient Tobacco Use Status: Current everyday Tobacco user Cigarettes Per Day: 5 Smoked in Last 30 Days: Yes Use of substances other than those prescribed or required for medical reasons: No Substance Use Type: Heroin Advance Directives: No Advance Directives Information Provided: No Patient : No Gender identity: Female
[2021-04-22 17:01] VITALS: BP 150/78; PULSE 77; RESP 16; TEMP 37.2; O2SAT 98
[2021-04-22] MEDS: Acetaminophen 325 MG TABLET 650 MG PO (17:27)
[2021-04-22] MEDS: Omeprazole 40 MG CAPSULE.DR PO (17:27)
[2021-04-22] MEDS: oxyCODONE HCl Immed Release 5 MG TABLET PO (17:28)
--- NOTE | 2021-04-22 19:10 | PC.NURSE ---
pt given po challenge at this time.
--- NOTE | 2021-04-22 19:30 | PC.NURSE ---
pt a&o, denies any sob or chest pain. pt tolerated po challenge well. Reviewed discharge instructions. Pt verbalized understanding.
== END 2021-04-22 19:34 | disposition home or self-care (01) ==
PROVIDERS: Emergency Provider Internal Medicine
DX: K80.50 Calculus of bile duct without cholangitis or cholecystitis without obstruction (principal); R10.11 Right upper quadrant pain; Z20.822 Contact with and (suspected) exposure to COVID-19; I10 Essential (primary) hypertension; F17.200 Nicotine dependence, unspecified, uncomplicated
CPT/HCPCS: 76705; 80048; 80076; 81003; 81025; 83690; 85025; 87635; 99284

== ENCOUNTER → 2021-05-06 14:37 | Outpatient (BNVA) | payer OTHER, SELFPAY | PROVIDERS: Visit Provider Surgery | DX: K80.20 Calculus of gallbladder without cholecystitis without obstruction (principal) | CPT/HCPCS: 99202 ==